=== PATIENT | female | born 1950 | race Caucasian/White ===

== ENCOUNTER 2018-07-15 14:12 | Inpatient (IN) ==
[2018-07-15] MEDS ORDERED: ONDANSETRON 4 MG/2 ML VIAL IV STA (15:38)
[2018-07-15] MEDS ORDERED: HYDROmorphone 2 MG/1 ML VIAL IV ONE (15:38)
[2018-07-15 15:47] LABS: Apearance,Urine CLEAR (Clear); Bilirubin,Urine Negative (Negative); Blood, Urine Negative (Negative); Glucose,Urine (UA) Negative (Negative); Ketones,Urine Negative (Negative); Nitrite,Urine Negative (Negative); Protein,Urine Negative; RBC,Urine <1 /HPF (0-4); Urine Color Yellow (Yellow); Urine Specific Gravity 1.009 (1.001-1.035); Urine Urobilinogen < 2.0 EU/DL (0.2-1.0); WBC,Urine <1 /HPF (0-6)
[2018-07-15 16:20] LABS: Basophils # 0.1 10*3/uL (0.0-0.2); Basophils % 0.6 % (0.0-0.8); Eosinophils # 0.1 10*3/uL (0.0-0.87); Eosinophils % 0.9 % (0.00-10.9); Hemoglobin 14.3 GM/DL (12.0-16.0); Immature Granulocytes % 0.4 %; Immature Granulocytes Absolute 0.03 #; Lymphocytes # 1.3 10*3/uL (1.4-4.0); Lymphocytes % 16.6 % (21.3-54.2); Mean Corpuscular HGB Conc 31.8 GM/DL (32-36); Mean Corpuscular Hemoglobin 30 PG (27-34); Mean Corpuscular Volume 94.1 FL (87-102); Mean Platelet Volume 9.9 FL (9.6-12.0); Monocytes # 0.7 10*3/uL (0.11-0.8); Monocytes % 8.9 % (1.7-12.7); Neutrophils # 5.8 10*3/uL (1.4-7.4); Neutrophils % 72.6 % (38.7-73.9); Platelet Count 212 T/CUMM (130-400); Red Blood Count 4.78 MC/CUMM (3.8-5.5); Red Cell Distribution Width 13.3 % (9.3-17.3); White Blood Count 8.1 T/CUMM (4-12)
[2018-07-15 16:26] LABS: INR 0.9
[2018-07-15 16:53] LABS: Alanine Aminotransferase 18 U/L (13-56); Albumin 4.3 G/DL (3.4-5.0); Alkaline Phosphatase 151 U/L (45-117); Aspartate Amino Transferase 19 U/L (0-37); Bilirubin,Total < 0.39 MG/DL (0.2-1.0); Blood Urea Nitrogen 12 MG/DL (7-18); Calcium 9.3 MG/DL (8.5-10.1); Glucose 105 MG/DL (74-106); Osmolality,Calculated 272.8 MOS/KG (273-304); Potassium 3.9 MMOL/L (3.5-5.1); Sodium 137 MMOL/L (136-145); Total Protein 8.7 G/DL (6.4-8.3)
[2018-07-15 16:54] LABS: Barbiturates Screen,Urine Positive (Negative); Benzodiazepines Screen,Urine Negative (Negative); Cannabinoid Screen,Urine Negative (Negative); Opiate Screen,Urine Negative (Negative); Phencyclidine Screen,Urine Negative (Negative)
[2018-07-15] MEDS: ONDANSETRON 4 MG/2 ML VIAL IV PRN ×2 (17:44→23:33)
[2018-07-15] MEDS ORDERED: LORazepam 2 MG/1 ML VIAL IV PRN (18:08)
[2018-07-15] MEDS: MORPHINE 4 MG/1 ML VIAL IV PRN ×2 (18:40→23:33)
[2018-07-15] MEDS: PHENYTOIN 50 MG PO SCH (20:42)
[2018-07-15] MEDS: TRAZODONE HCL 100 MG PO SCH (20:43)
[2018-07-15] MEDS: clonazePAM 0.5 MG TABLET PO SCH (20:45)
[2018-07-15] MEDS: ATORVASTATIN 10 MG TABLET PO SCH (20:45)
[2018-07-15] MEDS: PHENobarbital 30 MG TABLET PO SCH (20:45)
[2018-07-15] MEDS: QUEtiapine 100 MG TABLET PO SCH (20:45)
[2018-07-15] MEDS ORDERED: ENOXAPARIN 40 MG/0.4 ML SYRINGE SUBCUT SCH (21:00)
[2018-07-16] MEDS: MORPHINE 4 MG/1 ML VIAL IV PRN (03:20)
[2018-07-16] MEDS: ONDANSETRON 4 MG/2 ML VIAL IV PRN ×3 (03:20→14:59)
[2018-07-16 06:10] LABS: Basophils # 0.1 10*3/uL (0.0-0.2); Basophils % 0.7 % (0.0-0.8); Eosinophils % 0.4 % (0.00-10.9); Hematocrit 42.3 VOL% (35.7-47.0); Hemoglobin 13.4 GM/DL (12.0-16.0); Immature Granulocytes % 0.3 %; Immature Granulocytes Absolute 0.02 #; Lymphocytes # 1.4 10*3/uL (1.4-4.0); Lymphocytes % 20.7 % (21.3-54.2); Mean Corpuscular HGB Conc 31.7 GM/DL (32-36); Mean Corpuscular Hemoglobin 30 PG (27-34); Mean Corpuscular Volume 94.4 FL (87-102); Mean Platelet Volume 10.2 FL (9.6-12.0); Monocytes # 1.2 10*3/uL (0.11-0.8); Monocytes % 17.4 % (1.7-12.7); Neutrophils # 4.2 10*3/uL (1.4-7.4); Neutrophils % 60.5 % (38.7-73.9); Platelet Count 221 T/CUMM (130-400); Red Blood Count 4.48 MC/CUMM (3.8-5.5); Red Cell Distribution Width 13.2 % (9.3-17.3); White Blood Count 6.9 T/CUMM (4-12)
[2018-07-16] MEDS ORDERED: ceFAZolin 2,000 MG in PREMIX 1 EACH IV ONE (06:30)
[2018-07-16 06:31] LABS: Osmolality,Calculated 273.7 MOS/KG (273-304); Potassium 3.9 MMOL/L (3.5-5.1); Thyroid Stimulating Hormone 4.84 uIU/ml (0.358-3.74)
[2018-07-16] MEDS ORDERED: METOCLOPRAMIDE 10 MG/2 ML VIAL ONE (07:01)
[2018-07-16] MEDS ORDERED: FAMOTIDINE 20 MG/2 ML VIAL IV ONE (07:01)
[2018-07-16 07:06] LABS: Band Neutrophils 6 % (0-10); Eosinophils 3 % (0-10); Lymphocytes 26 % (20-55); Platelet Estimate Normal; Segmented Neutrophils 49 % (50-85); Total Cells Counted 100
[2018-07-16 07:07] LABS: Anisocytosis Slight
[2018-07-16] MEDS ORDERED: MAGNESIUM HYDROXIDE SUSP 30 ML UDCUP PO PRN (07:21)
[2018-07-16] MEDS ORDERED: BISACODYL 10 MG SUPP RECTAL PRN (07:21)
[2018-07-16] MEDS ORDERED: LACTULOSE 20 GM/30 ML UDCUP PO PRN (07:21)
[2018-07-16] MEDS ORDERED: diphenhydrAMINE CAP 25 MG CAPSULE PO PRN (07:21)
[2018-07-16] MEDS ORDERED: PROMETHAZINE 25 MG/1 ML VIAL ONE (08:46)
[2018-07-16] MEDS ORDERED: ALBUTEROL/IPRATROPIUM 3 ML NEB RESP TX ONE ×2 (08:54→09:12)
[2018-07-16] MEDS ORDERED: MORPHINE 4 MG/1 ML VIAL IV PRN (09:05)
[2018-07-16] MEDS ORDERED: PROMETHAZINE INJ 6.25 MG in SODIUM CHLORIDE 0.9% 50 ML IV ONE (09:45)
[2018-07-16] MEDS: PANTOPRAZOLE 40 MG TABLET PO SCH (10:19)
[2018-07-16] MEDS: amLODIPine 10 MG TABLET PO SCH (10:20)
[2018-07-16] MEDS: clonazePAM 0.5 MG TABLET PO SCH ×3 (10:20→21:28)
[2018-07-16] MEDS: FUROSEMIDE 20 MG TABLET PO SCH (10:20)
[2018-07-16] MEDS: PHENYTOIN 50 MG PO SCH ×3 (10:21→21:28)
[2018-07-16] MEDS: BACLOFEN 10 MG TABLET PO SCH ×3 (10:21→21:28)
[2018-07-16] MEDS: PHENobarbital 30 MG TABLET PO SCH ×2 (10:42→21:28)
[2018-07-16] MEDS: LACTATED RINGERS 1,000 ML IV SCH ×2 (10:42→21:29)
[2018-07-16] MEDS ORDERED: fentaNYL 100 MCG/2 ML VIAL ONE (11:14)
[2018-07-16] MEDS ORDERED: CALCIUM CHLORIDE 1,000 MG/10 ML VIAL IV ONE (11:14)
[2018-07-16] MEDS ORDERED: PROPOFOL 200 MG/20 ML VIAL IV ONE (11:14)
[2018-07-16] MEDS ORDERED: DESFLURANE 1 UNIT/15 MINUTE INH ONE (11:14)
[2018-07-16] MEDS ORDERED: GLYCOPYRROLATE 0.4 MG/2 ML VIAL ONE (11:15)
[2018-07-16] MEDS ORDERED: DEXAMETHASONE 10 MG/1 ML VIAL ONE (11:15)
[2018-07-16] MEDS ORDERED: ROCURONIUM 100 MG/10 ML VIAL IV ONE (11:15)
[2018-07-16] MEDS ORDERED: SUCCINYLCHOLINE 200 MG/10 ML VIAL ONE (11:15)
[2018-07-16] MEDS ORDERED: LACTATED RINGERS 1,000 ML IV ONE (11:15)
[2018-07-16] MEDS ORDERED: NEOSTIGMINE 10 MG/10 ML VIAL ONE (11:15)
[2018-07-16] MEDS ORDERED: ONDANSETRON 4 MG/2 ML VIAL ONE (11:15)
[2018-07-16] MEDS ORDERED: PHENYLEPHRINE 1 MG/10 ML SYRINGE IV ONE (11:15)
[2018-07-16] MEDS: ceFAZolin 1,000 MG in SYRINGE 1 EACH IV SCH ×2 (14:55→22:50)
[2018-07-16] MEDS ORDERED: ENOXAPARIN 40 MG/0.4 ML SYRINGE SUBCUT SCH (20:00)
[2018-07-16] MEDS: ATORVASTATIN 10 MG TABLET PO SCH (21:27)
[2018-07-16] MEDS: QUEtiapine 100 MG TABLET PO SCH (21:28)
[2018-07-16] MEDS: TRAZODONE HCL 100 MG PO SCH (21:29)
[2018-07-16 22:24] LABS: Basophils % 0.4 % (0.0-0.8); Eosinophils % 0.3 % (0.00-10.9); Hematocrit 28.4 VOL% (35.7-47.0); Immature Granulocytes % 0.4 %; Immature Granulocytes Absolute 0.03 #; Lymphocytes # 1.1 10*3/uL (1.4-4.0); Mean Corpuscular HGB Conc 31.7 GM/DL (32-36); Mean Corpuscular Hemoglobin 30 PG (27-34); Mean Corpuscular Volume 94.7 FL (87-102); Mean Platelet Volume 10.4 FL (9.6-12.0); Monocytes # 1.1 10*3/uL (0.11-0.8); Monocytes % 15.5 % (1.7-12.7); Neutrophils # 4.6 10*3/uL (1.4-7.4); Neutrophils % 67.4 % (38.7-73.9); Platelet Count 161 T/CUMM (130-400); Red Cell Distribution Width 13.1 % (9.3-17.3); White Blood Count 6.9 T/CUMM (4-12)
[2018-07-16] MEDS: ENOXAPARIN 30 MG/0.3 ML SYRINGE SUBCUT SCH (22:47)
[2018-07-17] MEDS: ONDANSETRON 4 MG/2 ML VIAL IV PRN ×4 (04:07→19:23)
[2018-07-17 05:42] LABS: Basophils % 0.6 % (0.0-0.8); Eosinophils # 0.1 10*3/uL (0.0-0.87); Eosinophils % 0.8 % (0.00-10.9); Hematocrit 27.4 VOL% (35.7-47.0); Hemoglobin 8.8 GM/DL (12.0-16.0); Immature Granulocytes % 0.4 %; Immature Granulocytes Absolute 0.03 #; Lymphocytes # 1.6 10*3/uL (1.4-4.0); Lymphocytes % 22.1 % (21.3-54.2); Mean Corpuscular HGB Conc 32.1 GM/DL (32-36); Mean Corpuscular Hemoglobin 30 PG (27-34); Mean Corpuscular Volume 94.5 FL (87-102); Mean Platelet Volume 10.4 FL (9.6-12.0); Monocytes # 1.1 10*3/uL (0.11-0.8); Neutrophils # 4.3 10*3/uL (1.4-7.4); Neutrophils % 60.1 % (38.7-73.9); Platelet Count 158 T/CUMM (130-400); Red Cell Distribution Width 13.2 % (9.3-17.3); White Blood Count 7.1 T/CUMM (4-12)
[2018-07-17] MEDS: ceFAZolin 1,000 MG in SYRINGE 1 EACH IV SCH (06:19)
[2018-07-17 06:22] LABS: Calcium 8.3 MG/DL (8.5-10.1); Osmolality,Calculated 276.5 MOS/KG (273-304); Potassium 3.7 MMOL/L (3.5-5.1)
[2018-07-17 06:59] LABS: Band Neutrophils 4 % (0-10); Lymphocytes 24 % (20-55); Segmented Neutrophils 66 % (50-85)
[2018-07-17 07:00] LABS: Platelet Estimate Adequate; Total Cells Counted 100
[2018-07-17] MEDS ORDERED: LEVOTHYROXINE 100 MCG TABLET PO SCH (07:53)
[2018-07-17] MEDS: clonazePAM 0.5 MG TABLET PO SCH ×3 (09:30→21:16)
[2018-07-17] MEDS: FUROSEMIDE 20 MG TABLET PO SCH (09:31)
[2018-07-17] MEDS: PHENobarbital 30 MG TABLET PO SCH ×2 (09:31→21:17)
[2018-07-17] MEDS: PANTOPRAZOLE 40 MG TABLET PO SCH (09:31)
[2018-07-17] MEDS: BACLOFEN 10 MG TABLET PO SCH ×3 (09:32→21:17)
[2018-07-17] MEDS: amLODIPine 10 MG TABLET PO SCH (09:32)
[2018-07-17] MEDS: PHENYTOIN 50 MG PO SCH ×3 (09:32→21:19)
[2018-07-17] MEDS: MORPHINE 4 MG/1 ML VIAL IV PRN ×3 (10:28→19:24)
[2018-07-17] MEDS: PROMETHAZINE 25 MG/1 ML VIAL IM PRN (16:44)
[2018-07-17] MEDS: LACTATED RINGERS 1,000 ML IV SCH (17:37)
[2018-07-17] MEDS: QUEtiapine 100 MG TABLET PO SCH (21:16)
[2018-07-17] MEDS: ATORVASTATIN 10 MG TABLET PO SCH (21:17)
[2018-07-17] MEDS: ENOXAPARIN 30 MG/0.3 ML SYRINGE SUBCUT SCH (21:19)
[2018-07-17] MEDS: TRAZODONE HCL 100 MG PO SCH (21:19)
[2018-07-18] MEDS: LEVOTHYROXINE 50 MCG TABLET PO SCH (06:26)
[2018-07-18] MEDS: LACTATED RINGERS 1,000 ML IV SCH ×2 (08:02→23:56)
[2018-07-18] MEDS: amLODIPine 10 MG TABLET PO SCH (08:09)
[2018-07-18] MEDS ORDERED: SODIUM CHLORIDE 0.9% 1,000 ML IV PRN (08:32)
[2018-07-18] MEDS: PANTOPRAZOLE 40 MG TABLET PO SCH (08:54)
[2018-07-18] MEDS: BACLOFEN 10 MG TABLET PO SCH ×3 (08:54→20:55)
[2018-07-18] MEDS: clonazePAM 0.5 MG TABLET PO SCH ×3 (08:54→20:55)
[2018-07-18] MEDS: PHENobarbital 30 MG TABLET PO SCH ×2 (08:55→20:59)
[2018-07-18] MEDS: PHENYTOIN 50 MG PO SCH ×3 (08:55→20:55)
[2018-07-18] MEDS: FUROSEMIDE 20 MG TABLET PO SCH (08:55)
[2018-07-18] MEDS: ONDANSETRON 4 MG/2 ML VIAL IV PRN (13:56)
[2018-07-18] MEDS: POLYETHYLENE GLYCOL POWDER 17 GM PACK PO SCH (14:48)
[2018-07-18] MEDS: PROMETHAZINE 25 MG/1 ML VIAL IM PRN (15:15)
[2018-07-18] MEDS: ATORVASTATIN 10 MG TABLET PO SCH (20:54)
[2018-07-18] MEDS: QUEtiapine 100 MG TABLET PO SCH (20:54)
[2018-07-18] MEDS: ZINC OXIDE PASTE 113 GM TUBE TOP SCH (20:55)
[2018-07-18] MEDS: TRAZODONE HCL 100 MG PO SCH (20:55)
[2018-07-18] MEDS: ENOXAPARIN 30 MG/0.3 ML SYRINGE SUBCUT SCH (21:04)
[2018-07-18 21:15] LABS: Hematocrit 31.7 VOL% (35.7-47.0); Hemoglobin 10.3 GM/DL (12.0-16.0)
[2018-07-19] MEDS: ONDANSETRON 4 MG/2 ML VIAL IV PRN (01:49)
[2018-07-19 05:13] LABS: Basophils % 0.8 % (0.0-0.8); Eosinophils # 0.4 10*3/uL (0.0-0.87); Eosinophils % 7.7 % (0.00-10.9); Hematocrit 31.2 VOL% (35.7-47.0); Hemoglobin 9.9 GM/DL (12.0-16.0); Immature Granulocytes % 0.4 %; Immature Granulocytes Absolute 0.02 #; Lymphocytes # 1.4 10*3/uL (1.4-4.0); Lymphocytes % 29.6 % (21.3-54.2); Mean Corpuscular HGB Conc 31.7 GM/DL (32-36); Mean Corpuscular Hemoglobin 30 PG (27-34); Mean Corpuscular Volume 94.8 FL (87-102); Mean Platelet Volume 10.3 FL (9.6-12.0); Monocytes # 0.7 10*3/uL (0.11-0.8); Monocytes % 13.6 % (1.7-12.7); Neutrophils # 2.3 10*3/uL (1.4-7.4); Neutrophils % 47.9 % (38.7-73.9); Platelet Count 155 T/CUMM (130-400); Red Blood Count 3.29 MC/CUMM (3.8-5.5); Red Cell Distribution Width 13.2 % (9.3-17.3); White Blood Count 4.8 T/CUMM (4-12)
[2018-07-19 05:43] LABS: Calcium 7.9 MG/DL (8.5-10.1); Potassium 3.4 MMOL/L (3.5-5.1)
[2018-07-19] MEDS: LEVOTHYROXINE 50 MCG TABLET PO SCH (05:43)
[2018-07-19] MEDS: PHENYTOIN 50 MG PO SCH ×2 (09:47→15:10)
[2018-07-19] MEDS: PANTOPRAZOLE 40 MG TABLET PO SCH (09:47)
[2018-07-19] MEDS: FUROSEMIDE 20 MG TABLET PO SCH (09:47)
[2018-07-19] MEDS: clonazePAM 0.5 MG TABLET PO SCH ×2 (09:47→15:10)
[2018-07-19] MEDS: amLODIPine 10 MG TABLET PO SCH (09:47)
[2018-07-19] MEDS: BACLOFEN 10 MG TABLET PO SCH ×2 (09:47→15:10)
[2018-07-19] MEDS: POLYETHYLENE GLYCOL POWDER 17 GM PACK PO SCH (09:48)
[2018-07-19] MEDS: ZINC OXIDE PASTE 113 GM TUBE TOP SCH (09:48)
[2018-07-19] MEDS: PHENobarbital 30 MG TABLET PO SCH (11:11)
[2018-07-19 11:28] VITALS: BP 104/50
[2018-07-19] MEDS: POTASSIUM CHLORIDE 20 MEQ TABLET PO PRN ×2 (13:37→15:11)
== END 2018-07-19 16:35 | disposition swing bed (61) | DRG 481 ==
LOC: EDUNIT# → N.ED 14:12 → N.EDINP 14:12 → SUATTDRO 16:24 → N.EDINP 17:20 → N.3E 17:25
PROVIDERS: ADMIT Internal Medicine; ATTEND Internal Medicine

== ENCOUNTER 2018-08-31 15:43 | Inpatient (IN) ==
[2018-08-31 16:52] LABS: Basophils % 0.4 % (0.0-0.8); Eosinophils % 0.1 % (0.00-10.9); Hematocrit 48.1 VOL% (35.7-47.0); Hemoglobin 15.3 GM/DL (12.0-16.0); Immature Granulocytes % 0.4 %; Immature Granulocytes Absolute 0.03 #; Lymphocytes # 1.2 10*3/uL (1.4-4.0); Lymphocytes % 13.6 % (21.3-54.2); Mean Corpuscular HGB Conc 31.8 GM/DL (32-36); Mean Corpuscular Hemoglobin 30 PG (27-34); Mean Corpuscular Volume 94.9 FL (87-102); Mean Platelet Volume 9.7 FL (9.6-12.0); Monocytes # 0.9 10*3/uL (0.11-0.8); Monocytes % 10.5 % (1.7-12.7); Neutrophils # 6.4 10*3/uL (1.4-7.4); Platelet Count 239 T/CUMM (130-400); Red Blood Count 5.07 MC/CUMM (3.8-5.5); Red Cell Distribution Width 13.5 % (9.3-17.3); White Blood Count 8.5 T/CUMM (4-12)
[2018-08-31 17:04] LABS: Apearance,Urine CLOUDY (Clear); Bilirubin,Urine Negative (Negative); Blood, Urine Small mg/dL (Negative); Glucose,Urine (UA) Negative (Negative); Ketones,Urine Negative (Negative); Mucus,Urine Occasional /LPF (Occasional); Nitrite,Urine Negative (Negative); Protein,Urine Negative; RBC,Urine 4 /HPF (0-4); Urine Color Yellow (Yellow); Urine Specific Gravity 1.025 (1.001-1.035); Urine Urobilinogen < 2.0 EU/DL (0.2-1.0); WBC,Urine 193 /HPF (0-6)
[2018-08-31] MEDS ORDERED: cefTRIAXone 1,000 MG in SODIUM CHLORIDE 0.9% 100 ML IV STA (17:13)
[2018-08-31 17:27] LABS: Albumin 3.2 G/DL (3.4-5.0); Bilirubin,Total 0.5 MG/DL (0.2-1.0); Osmolality,Calculated 276.7 MOS/KG (273-304); Total Protein 7.7 G/DL (6.4-8.3)
[2018-08-31] MEDS ORDERED: hydrALAZINE 20 MG/1 ML VIAL IV PRN (18:14)
[2018-08-31] MEDS ORDERED: cefTRIAXone 1,000 MG in SYRINGE 1 EACH IV ONE (20:00)
[2018-08-31] MEDS ORDERED: ENOXAPARIN 40 MG/0.4 ML SYRINGE SUBCUT SCH (21:00)
[2018-08-31] MEDS: SODIUM CHLORIDE 0.9% 1,000 ML IV SCH (21:31)
[2018-08-31] MEDS: ONDANSETRON 4 MG/2 ML VIAL IV PRN (21:33)
[2018-08-31] MEDS: clonazePAM 0.5 MG TABLET PO SCH (21:33)
[2018-09-01] MEDS: SODIUM CHLORIDE 0.9% 1,000 ML IV SCH ×3 (05:13→17:32)
[2018-09-01 05:23] LABS: Calcium 8.4 MG/DL (8.5-10.1); Osmolality,Calculated 279.4 MOS/KG (273-304); Potassium 3.7 MMOL/L (3.5-5.1)
[2018-09-01] MEDS: ONDANSETRON 4 MG/2 ML VIAL IV PRN ×2 (05:32→11:50)
[2018-09-01 06:15] LABS: Basophils % 0.4 % (0.0-0.8); Eosinophils % 0.1 % (0.00-10.9); Hematocrit 45.9 VOL% (35.7-47.0); Hemoglobin 14.4 GM/DL (12.0-16.0); Immature Granulocytes % 0.3 %; Immature Granulocytes Absolute 0.02 #; Lymphocytes # 1.1 10*3/uL (1.4-4.0); Lymphocytes % 14.1 % (21.3-54.2); Mean Corpuscular HGB Conc 31.4 GM/DL (32-36); Mean Corpuscular Hemoglobin 30 PG (27-34); Mean Corpuscular Volume 96.2 FL (87-102); Mean Platelet Volume 10.4 FL (9.6-12.0); Monocytes # 0.9 10*3/uL (0.11-0.8); Monocytes % 11.8 % (1.7-12.7); Neutrophils # 5.6 10*3/uL (1.4-7.4); Neutrophils % 73.3 % (38.7-73.9); Platelet Count 233 T/CUMM (130-400); Red Blood Count 4.77 MC/CUMM (3.8-5.5); Red Cell Distribution Width 13.7 % (9.3-17.3); White Blood Count 7.7 T/CUMM (4-12)
[2018-09-01] MEDS ORDERED: PANTOPRAZOLE 40 MG VIAL IV SCH (09:00)
[2018-09-01] MEDS ORDERED: diphenhydrAMINE CAP 25 MG CAPSULE PO PRN (09:10)
[2018-09-01] MEDS: BISACODYL 10 MG SUPP RECTAL ONE ×2 (11:28→15:52)
[2018-09-01] MEDS: clonazePAM 0.5 MG TABLET PO SCH ×3 (11:28→20:29)
[2018-09-01] MEDS: amLODIPine 10 MG TABLET PO SCH (11:28)
[2018-09-01] MEDS: ENOXAPARIN 80 MG/0.8 ML SYRINGE SUBCUT SCH ×2 (11:29→23:13)
[2018-09-01] MEDS: MORPHINE 4 MG/1 ML VIAL IV PRN (11:49)
[2018-09-01] MEDS ORDERED: PHENOL 1.4% THROAT SPRAY 177 ML BOTTLE PO PRN (12:25)
[2018-09-01] MEDS: PHENobarbital 30 MG TABLET PO SCH ×2 (16:18→20:29)
[2018-09-01] MEDS: PHENYTOIN 100 MG/4 ML UDCUP PO SCH ×2 (16:18→20:29)
[2018-09-01] MEDS: PANTOPRAZOLE 40 MG VIAL IV SCH (20:30)
[2018-09-01] MEDS: cefTRIAXone 1,000 MG in SYRINGE 1 EACH IV SCH (20:30)
[2018-09-01] MEDS: ZINC OXIDE PASTE 113 GM TUBE TOP SCH (20:31)
[2018-09-01] MEDS ORDERED: cefTRIAXone 2,000 MG in SYRINGE 1 EACH IV SCH (21:00)
[2018-09-01] MEDS: SODIUM CHLOR 0.9% KCL 20 MEQ 20 MEQ/1,000 ML BAG IV SCH (21:58)
[2018-09-02 04:41] LABS: Basophils % 0.7 % (0.0-0.8); Eosinophils # 0.1 10*3/uL (0.0-0.87); Eosinophils % 1.1 % (0.00-10.9); Hematocrit 41.3 VOL% (35.7-47.0); Hemoglobin 12.7 GM/DL (12.0-16.0); Immature Granulocytes % 0.7 %; Immature Granulocytes Absolute 0.04 #; Lymphocytes # 1.3 10*3/uL (1.4-4.0); Lymphocytes % 23.1 % (21.3-54.2); Mean Corpuscular HGB Conc 30.8 GM/DL (32-36); Mean Corpuscular Hemoglobin 30 PG (27-34); Mean Corpuscular Volume 97.6 FL (87-102); Mean Platelet Volume 10.2 FL (9.6-12.0); Monocytes # 0.7 10*3/uL (0.11-0.8); Monocytes % 12.3 % (1.7-12.7); Neutrophils # 3.4 10*3/uL (1.4-7.4); Neutrophils % 62.1 % (38.7-73.9); Platelet Count 204 T/CUMM (130-400); Red Blood Count 4.23 MC/CUMM (3.8-5.5); Red Cell Distribution Width 13.6 % (9.3-17.3); White Blood Count 5.5 T/CUMM (4-12)
[2018-09-02 04:53] LABS: Calcium 7.9 MG/DL (8.5-10.1); Osmolality,Calculated 283.8 MOS/KG (273-304); Potassium 3.7 MMOL/L (3.5-5.1)
[2018-09-02] MEDS: SODIUM CHLOR 0.9% KCL 20 MEQ 20 MEQ/1,000 ML BAG IV SCH ×3 (05:57→20:45)
[2018-09-02] MEDS: LEVOTHYROXINE 50 MCG TABLET PO SCH (05:58)
[2018-09-02] MEDS: MORPHINE 4 MG/1 ML VIAL IV PRN (09:38)
[2018-09-02] MEDS: PHENYTOIN 100 MG/4 ML UDCUP PO SCH ×3 (09:53→21:35)
[2018-09-02] MEDS: amLODIPine 10 MG TABLET PO SCH (09:54)
[2018-09-02] MEDS: PHENobarbital 30 MG TABLET PO SCH ×3 (09:54→21:35)
[2018-09-02] MEDS: clonazePAM 0.5 MG TABLET PO SCH ×3 (09:55→21:35)
[2018-09-02] MEDS: ZINC OXIDE PASTE 113 GM TUBE TOP SCH ×2 (09:55→21:35)
[2018-09-02] MEDS: ONDANSETRON 4 MG/2 ML VIAL IV PRN ×2 (10:55→17:31)
[2018-09-02] MEDS: PANTOPRAZOLE 40 MG VIAL IV SCH ×2 (10:59→21:36)
[2018-09-02] MEDS: ENOXAPARIN 80 MG/0.8 ML SYRINGE SUBCUT SCH (17:32)
[2018-09-02] MEDS: cefTRIAXone 1,000 MG in SYRINGE 1 EACH IV SCH (21:34)
[2018-09-02] MEDS: MELATONIN 3 MG TABLET PO PRN (23:56)
[2018-09-03] MEDS: ONDANSETRON 4 MG/2 ML VIAL IV PRN ×2 (02:53→21:20)
[2018-09-03] MEDS: ENOXAPARIN 80 MG/0.8 ML SYRINGE SUBCUT SCH (05:24)
[2018-09-03] MEDS: LEVOTHYROXINE 50 MCG TABLET PO SCH (05:31)
[2018-09-03] MEDS: SODIUM CHLOR 0.9% KCL 20 MEQ 20 MEQ/1,000 ML BAG IV SCH (06:01)
[2018-09-03 06:22] LABS: Basophils % 0.7 % (0.0-0.8); Eosinophils # 0.1 10*3/uL (0.0-0.87); Eosinophils % 0.9 % (0.00-10.9); Hematocrit 38.5 VOL% (35.7-47.0); Hemoglobin 12.6 GM/DL (12.0-16.0); Immature Granulocytes % 0.7 %; Immature Granulocytes Absolute 0.04 #; Lymphocytes % 17.4 % (21.3-54.2); Mean Corpuscular HGB Conc 32.7 GM/DL (32-36); Mean Corpuscular Hemoglobin 31 PG (27-34); Mean Corpuscular Volume 94.4 FL (87-102); Mean Platelet Volume 9.9 FL (9.6-12.0); Monocytes # 0.6 10*3/uL (0.11-0.8); Monocytes % 10.8 % (1.7-12.7); Neutrophils # 3.9 10*3/uL (1.4-7.4); Neutrophils % 69.5 % (38.7-73.9); Platelet Count 189 T/CUMM (130-400); Red Blood Count 4.08 MC/CUMM (3.8-5.5); Red Cell Distribution Width 13.2 % (9.3-17.3); White Blood Count 5.6 T/CUMM (4-12)
[2018-09-03 06:35] LABS: Albumin 2.9 G/DL (3.4-5.0); Bilirubin,Total 0.9 MG/DL (0.2-1.0); Calcium 8.5 MG/DL (8.5-10.1); Osmolality,Calculated 269.8 MOS/KG (273-304); Total Protein 6.5 G/DL (6.4-8.3)
[2018-09-03] MEDS: clonazePAM 0.5 MG TABLET PO SCH ×3 (09:00→20:59)
[2018-09-03] MEDS: PANTOPRAZOLE 40 MG VIAL IV SCH ×2 (09:00→20:59)
[2018-09-03] MEDS: amLODIPine 10 MG TABLET PO SCH (09:00)
[2018-09-03] MEDS ORDERED: cefOXitin 1,000 MG in SYRINGE 1 EACH IV ONE (09:39)
[2018-09-03] MEDS ORDERED: BUPIVACAINE 0.5% 50 ML VIAL ONE (09:52)
[2018-09-03] MEDS ORDERED: LIDOCAINE 1%/EPI INJ 20 ML VIAL ONE (09:52)
[2018-09-03] MEDS: PHENobarbital 30 MG TABLET PO SCH ×3 (10:27→20:59)
[2018-09-03] MEDS: PHENYTOIN 100 MG/4 ML UDCUP PO SCH ×3 (10:27→20:58)
[2018-09-03] MEDS ORDERED: PROMETHAZINE INJ 25 MG in SODIUM CHLORIDE 0.9% 50 ML IV PRN (11:46)
[2018-09-03] MEDS ORDERED: HYDROmorphone 2 MG/1 ML VIAL IV PRN (11:46)
[2018-09-03] MEDS ORDERED: ONDANSETRON 4 MG/2 ML VIAL IV PRN (11:46)
[2018-09-03] MEDS ORDERED: MEPERIDINE 25 MG/1 ML VIAL ONE (12:50)
[2018-09-03] MEDS: MEPERIDINE 25 MG/1 ML VIAL IV PRN (12:50)
[2018-09-03] MEDS ORDERED: ONDANSETRON 4 MG/2 ML VIAL ONE ×2 (12:50→16:32)
[2018-09-03] MEDS ORDERED: ALBUMIN 5% 12.5 GM/250 ML VIAL IV ONE ×2 (14:02→16:32)
[2018-09-03 14:14] LABS: Free T4 (Free Thyroxine) 1.07 NG/DL (0.76-1.46)
[2018-09-03] MEDS ORDERED: MICROFIBRILLAR COLLAGEN POWDER 1 GM CAN TOP ONE (15:23)
[2018-09-03] MEDS ORDERED: ePHEDrine 50 MG/ML AMP ONE (16:28)
[2018-09-03] MEDS ORDERED: HYDROmorphone 2 MG/1 ML VIAL ONE (16:29)
[2018-09-03] MEDS ORDERED: PROPOFOL 200 MG/20 ML VIAL IV ONE (16:32)
[2018-09-03] MEDS ORDERED: KETOROLAC 30 MG/1 ML VIAL ONE (16:32)
[2018-09-03] MEDS ORDERED: fentaNYL 100 MCG/2 ML VIAL ONE (16:32)
[2018-09-03] MEDS ORDERED: DEXAMETHASONE 4 MG/1 ML VIAL ONE (16:32)
[2018-09-03] MEDS ORDERED: SEVOFLURANE 1 UNIT/15 MINUTE INH ONE (16:32)
[2018-09-03] MEDS ORDERED: SODIUM CHLORIDE 0.9% 1,000 ML IV ONE (16:33)
[2018-09-03] MEDS ORDERED: ROCURONIUM 100 MG/10 ML VIAL IV ONE (16:33)
[2018-09-03] MEDS ORDERED: GLYCOPYRROLATE 0.4 MG/2 ML VIAL ONE (16:33)
[2018-09-03] MEDS ORDERED: ACETAMINOPHEN 1,000 MG/100 ML VIAL IV ONE (16:33)
[2018-09-03] MEDS ORDERED: NEOSTIGMINE 10 MG/10 ML VIAL ONE (16:33)
[2018-09-03] MEDS ORDERED: SODIUM CHLORIDE 0.9% 100 ML IV ONE (16:33)
[2018-09-03] MEDS ORDERED: SUCCINYLCHOLINE 200 MG/10 ML VIAL ONE (16:33)
[2018-09-03 16:34] LABS: Apearance,Urine CLEAR (Clear); Bacteria,Urine Occasional /HPF (Few); Bilirubin,Urine Negative (Negative); Blood, Urine Small mg/dL (Negative); Glucose,Urine (UA) Negative (Negative); Ketones,Urine 80 mg/dL (Negative); Mucus,Urine Occasional /LPF (Occasional); Nitrite,Urine Negative (Negative); Protein,Urine Negative; RBC,Urine <1 /HPF (0-4); Squamous Epithelial Cell,Urine Occasional /HPF (0-10); Urine Color Yellow (Yellow); Urine Specific Gravity 1.025 (1.001-1.035); Urine Urobilinogen < 2.0 EU/DL (0.2-1.0); WBC,Urine <1 /HPF (0-6)
[2018-09-03] MEDS: HYDROmorphone 2 MG/1 ML VIAL IV PRN ×4 (16:35→16:51)
[2018-09-03] MEDS ORDERED: diphenhydrAMINE 50 MG/1 ML VIAL ONE (16:55)
[2018-09-03] MEDS ORDERED: MORPHINE 10 MG/1 ML VIAL ONE (17:11)
[2018-09-03] MEDS: ZINC OXIDE PASTE 113 GM TUBE TOP SCH ×2 (17:16→22:36)
[2018-09-03] MEDS: metroNIDAZOLE INJ 500 MG in PREMIX 1 EACH IV SCH ×2 (17:16→18:08)
[2018-09-03] MEDS: POTASSIUM CHLORIDE INJ 10 MEQ in DEXTROSE 5% LACTATED RINGERS 1,000 ML IV SCH ×2 (17:16→18:03)
[2018-09-03] MEDS ORDERED: diphenhydrAMINE 50 MG/1 ML VIAL IV PRN (17:18)
[2018-09-03] MEDS ORDERED: MORPHINE 10 MG/1 ML VIAL IV PRN (17:18)
[2018-09-03] MEDS: cefTRIAXone 2,000 MG in SYRINGE 1 EACH IV SCH (18:08)
[2018-09-03 18:13] LABS: Hematocrit 39.1 VOL% (35.7-47.0); Hemoglobin 12.7 GM/DL (12.0-16.0)
[2018-09-03] MEDS: MORPHINE 4 MG/1 ML VIAL IV PRN ×2 (18:58→22:10)
[2018-09-04] MEDS: MEPERIDINE 25 MG/1 ML VIAL IV PRN (00:19)
[2018-09-04] MEDS: ONDANSETRON 4 MG/2 ML VIAL IV PRN ×5 (00:21→20:24)
[2018-09-04 00:49] LABS: Hematocrit 37.5 VOL% (35.7-47.0); Hemoglobin 12.1 GM/DL (12.0-16.0)
[2018-09-04] MEDS: metroNIDAZOLE INJ 500 MG in PREMIX 1 EACH IV SCH ×3 (01:39→16:05)
[2018-09-04] MEDS: POTASSIUM CHLORIDE INJ 10 MEQ in DEXTROSE 5% LACTATED RINGERS 1,000 ML IV SCH ×2 (03:58→14:50)
[2018-09-04 04:07] LABS: Basophils % 0.5 % (0.0-0.8); Eosinophils % 0.2 % (0.00-10.9); Hemoglobin 12.6 GM/DL (12.0-16.0); Immature Granulocytes % 0.5 %; Immature Granulocytes Absolute 0.03 #; Lymphocytes # 1.1 10*3/uL (1.4-4.0); Lymphocytes % 18.4 % (21.3-54.2); Mean Corpuscular HGB Conc 32.3 GM/DL (32-36); Mean Corpuscular Hemoglobin 30 PG (27-34); Mean Corpuscular Volume 94.2 FL (87-102); Mean Platelet Volume 11.6 FL (9.6-12.0); Monocytes # 0.8 10*3/uL (0.11-0.8); Monocytes % 13.1 % (1.7-12.7); Neutrophils # 3.8 10*3/uL (1.4-7.4); Neutrophils % 67.3 % (38.7-73.9); Red Blood Count 4.14 MC/CUMM (3.8-5.5); Red Cell Distribution Width 13.2 % (9.3-17.3); White Blood Count 5.7 T/CUMM (4-12)
[2018-09-04] MEDS: MORPHINE 4 MG/1 ML VIAL IV PRN ×3 (04:07→20:26)
[2018-09-04 04:09] LABS: Platelet Count 119 T/CUMM (130-400)
[2018-09-04 04:37] LABS: Bilirubin,Total 0.7 MG/DL (0.2-1.0); Calcium 8.1 MG/DL (8.5-10.1); Osmolality,Calculated 274.5 MOS/KG (273-304); Potassium 3.8 MMOL/L (3.5-5.1); Total Protein 6.1 G/DL (6.4-8.3)
[2018-09-04 05:18] LABS: Platelet Estimate Decreased
[2018-09-04] MEDS ORDERED: BUPIVACAINE 0.5% 50 ML VIAL ONE (07:10)
[2018-09-04] MEDS: clonazePAM 0.5 MG TABLET PO SCH ×3 (08:21→21:28)
[2018-09-04] MEDS: PHENobarbital 30 MG TABLET PO SCH ×3 (08:21→21:28)
[2018-09-04] MEDS: amLODIPine 10 MG TABLET PO SCH (08:21)
[2018-09-04] MEDS: PANTOPRAZOLE 40 MG VIAL IV SCH ×2 (08:22→21:28)
[2018-09-04] MEDS: PHENYTOIN 100 MG/4 ML UDCUP PO SCH ×3 (08:22→21:28)
[2018-09-04 08:26] LABS: Hemoglobin 12.8 GM/DL (12.0-16.0)
[2018-09-04] MEDS: ZINC OXIDE PASTE 113 GM TUBE TOP SCH ×2 (08:53→21:30)
[2018-09-04] MEDS ORDERED: PROMETHAZINE 25 MG/1 ML VIAL ONE (09:19)
[2018-09-04] MEDS ORDERED: PROMETHAZINE INJ 25 MG in SODIUM CHLORIDE 0.9% 50 ML IV ONE (10:00)
[2018-09-04] MEDS: cefTRIAXone 2,000 MG in SYRINGE 1 EACH IV SCH (11:40)
[2018-09-04] MEDS: MELATONIN 3 MG TABLET PO PRN (21:28)
[2018-09-05] MEDS: POTASSIUM CHLORIDE INJ 10 MEQ in DEXTROSE 5% LACTATED RINGERS 1,000 ML IV SCH ×3 (00:54→23:09)
[2018-09-05] MEDS: metroNIDAZOLE INJ 500 MG in PREMIX 1 EACH IV SCH ×3 (02:00→16:04)
[2018-09-05] MEDS: MORPHINE 4 MG/1 ML VIAL IV PRN ×3 (02:10→15:54)
[2018-09-05 04:26] LABS: Basophils % 0.3 % (0.0-0.8); Eosinophils % 0.7 % (0.00-10.9); Hematocrit 35.2 VOL% (35.7-47.0); Hemoglobin 11.4 GM/DL (12.0-16.0); Immature Granulocytes % 0.5 %; Immature Granulocytes Absolute 0.03 #; Lymphocytes # 0.9 10*3/uL (1.4-4.0); Lymphocytes % 15.4 % (21.3-54.2); Mean Corpuscular HGB Conc 32.4 GM/DL (32-36); Mean Corpuscular Hemoglobin 31 PG (27-34); Mean Corpuscular Volume 95.1 FL (87-102); Monocytes # 0.8 10*3/uL (0.11-0.8); Monocytes % 13.7 % (1.7-12.7); Neutrophils # 4.1 10*3/uL (1.4-7.4); Neutrophils % 69.4 % (38.7-73.9); Platelet Count 186 T/CUMM (130-400); Red Cell Distribution Width 13.6 % (9.3-17.3); White Blood Count 5.9 T/CUMM (4-12)
[2018-09-05 04:36] LABS: Albumin 2.7 G/DL (3.4-5.0); Bilirubin,Total 0.6 MG/DL (0.2-1.0); Calcium 8.2 MG/DL (8.5-10.1); Osmolality,Calculated 281.1 MOS/KG (273-304); Total Protein 5.8 G/DL (6.4-8.3)
[2018-09-05] MEDS ORDERED: MAGNESIUM SULF RIDER 4 GM in PREMIX 1 EACH IV PRN (05:14)
[2018-09-05] MEDS ORDERED: MAGNESIUM SULF RIDER 2 GM in PREMIX 1 EACH IV PRN (05:14)
[2018-09-05] MEDS: POTASSIUM CHLORIDE RIDER 10 MEQ in PREMIX 1 EACH IV PRN ×5 (05:39→11:24)
[2018-09-05] MEDS: PANTOPRAZOLE 40 MG VIAL IV SCH ×2 (10:09→20:51)
[2018-09-05] MEDS: PHENobarbital 30 MG TABLET PO SCH ×3 (10:10→20:51)
[2018-09-05] MEDS: amLODIPine 10 MG TABLET PO SCH (10:10)
[2018-09-05] MEDS: clonazePAM 0.5 MG TABLET PO SCH ×3 (10:10→20:50)
[2018-09-05] MEDS: PHENYTOIN 100 MG/4 ML UDCUP PO SCH ×3 (10:12→20:53)
[2018-09-05] MEDS: ZINC OXIDE PASTE 113 GM TUBE TOP SCH ×2 (10:13→20:53)
[2018-09-05] MEDS: cefTRIAXone 2,000 MG in SYRINGE 1 EACH IV SCH (11:52)
[2018-09-05] MEDS: ONDANSETRON 4 MG/2 ML VIAL IV PRN (16:15)
[2018-09-05] MEDS: MELATONIN 3 MG TABLET PO PRN (20:50)
[2018-09-06] MEDS: metroNIDAZOLE INJ 500 MG in PREMIX 1 EACH IV SCH ×3 (00:46→16:49)
[2018-09-06] MEDS: PHENYTOIN 100 MG/4 ML UDCUP PO SCH ×3 (08:58→20:38)
[2018-09-06] MEDS: PHENobarbital 30 MG TABLET PO SCH ×3 (08:59→20:39)
[2018-09-06] MEDS: clonazePAM 0.5 MG TABLET PO SCH ×3 (08:59→20:38)
[2018-09-06] MEDS: amLODIPine 10 MG TABLET PO SCH (08:59)
[2018-09-06] MEDS: ZINC OXIDE PASTE 113 GM TUBE TOP SCH ×2 (09:06→20:39)
[2018-09-06] MEDS: PANTOPRAZOLE 40 MG VIAL IV SCH ×2 (09:07→20:41)
[2018-09-06] MEDS: ONDANSETRON 4 MG/2 ML VIAL IV PRN ×3 (09:10→19:34)
[2018-09-06] MEDS: POTASSIUM CHLORIDE INJ 10 MEQ in DEXTROSE 5% LACTATED RINGERS 1,000 ML IV SCH ×2 (11:27→21:41)
[2018-09-06 11:36] LABS: Basophils % 0.6 % (0.0-0.8); Eosinophils % 0.6 % (0.00-10.9); Hematocrit 37.4 VOL% (35.7-47.0); Immature Granulocytes % 0.8 %; Immature Granulocytes Absolute 0.04 #; Lymphocytes # 0.7 10*3/uL (1.4-4.0); Lymphocytes % 13.4 % (21.3-54.2); Mean Corpuscular HGB Conc 32.1 GM/DL (32-36); Mean Corpuscular Hemoglobin 31 PG (27-34); Mean Corpuscular Volume 96.1 FL (87-102); Mean Platelet Volume 9.8 FL (9.6-12.0); Monocytes # 0.7 10*3/uL (0.11-0.8); Monocytes % 13.4 % (1.7-12.7); Neutrophils # 3.5 10*3/uL (1.4-7.4); Neutrophils % 71.2 % (38.7-73.9); Platelet Count 196 T/CUMM (130-400); Red Blood Count 3.89 MC/CUMM (3.8-5.5); Red Cell Distribution Width 13.8 % (9.3-17.3); White Blood Count 4.9 T/CUMM (4-12)
[2018-09-06] MEDS: cefTRIAXone 2,000 MG in SYRINGE 1 EACH IV SCH (13:18)
[2018-09-06] MEDS: QUEtiapine 100 MG TABLET PO SCH (20:39)
[2018-09-07] MEDS: metroNIDAZOLE INJ 500 MG in PREMIX 1 EACH IV SCH ×3 (00:48→17:13)
[2018-09-07 04:45] LABS: Basophils % 0.5 % (0.0-0.8); Eosinophils # 0.2 10*3/uL (0.0-0.87); Eosinophils % 6.3 % (0.00-10.9); Hematocrit 36.9 VOL% (35.7-47.0); Hemoglobin 11.5 GM/DL (12.0-16.0); Immature Granulocytes % 0.3 %; Immature Granulocytes Absolute 0.01 #; Lymphocytes % 28.1 % (21.3-54.2); Mean Corpuscular HGB Conc 31.2 GM/DL (32-36); Mean Corpuscular Hemoglobin 31 PG (27-34); Mean Corpuscular Volume 97.9 FL (87-102); Mean Platelet Volume 9.9 FL (9.6-12.0); Monocytes # 0.7 10*3/uL (0.11-0.8); Monocytes % 18.3 % (1.7-12.7); Neutrophils # 1.7 10*3/uL (1.4-7.4); Neutrophils % 46.5 % (38.7-73.9); Platelet Count 187 T/CUMM (130-400); Red Blood Count 3.77 MC/CUMM (3.8-5.5); Red Cell Distribution Width 14.1 % (9.3-17.3); White Blood Count 3.7 T/CUMM (4-12)
[2018-09-07 05:07] LABS: Calcium 8.5 MG/DL (8.5-10.1); Potassium 3.4 MMOL/L (3.5-5.1)
[2018-09-07] MEDS: ONDANSETRON 4 MG/2 ML VIAL IV PRN (05:26)
[2018-09-07 05:50] LABS: Band Neutrophils 2 % (0-10); Eosinophils 7 % (0-10); Lymphocytes 32 % (20-55); Reactive Lymphocytes 1+; Segmented Neutrophils 44 % (50-85); Total Cells Counted 100
[2018-09-07 05:51] LABS: Hypochromasia 1+; Platelet Estimate Normal
[2018-09-07] MEDS: POTASSIUM CHLORIDE RIDER 10 MEQ in PREMIX 1 EACH IV PRN ×3 (06:40→09:12)
[2018-09-07] MEDS ORDERED: PROMETHAZINE INJ 25 MG in SODIUM CHLORIDE 0.9% 50 ML IV ONE (08:30)
[2018-09-07] MEDS: POTASSIUM CHLORIDE INJ 10 MEQ in DEXTROSE 5% LACTATED RINGERS 1,000 ML IV SCH ×3 (09:12→22:50)
[2018-09-07] MEDS: PANTOPRAZOLE 40 MG VIAL IV SCH ×2 (10:46→21:47)
[2018-09-07] MEDS: cefTRIAXone 2,000 MG in SYRINGE 1 EACH IV SCH (14:20)
[2018-09-07] MEDS: PHENYTOIN 100 MG/4 ML UDCUP PO SCH ×3 (14:24→21:46)
[2018-09-07] MEDS: PHENobarbital 30 MG TABLET PO SCH ×3 (14:25→21:47)
[2018-09-07] MEDS: clonazePAM 0.5 MG TABLET PO SCH ×3 (14:25→21:47)
[2018-09-07] MEDS: amLODIPine 10 MG TABLET PO SCH (17:12)
[2018-09-07] MEDS: ENOXAPARIN 80 MG/0.8 ML SYRINGE SUBCUT SCH (17:13)
[2018-09-07] MEDS: ZINC OXIDE PASTE 113 GM TUBE TOP SCH ×2 (17:35→21:47)
[2018-09-07] MEDS: QUEtiapine 100 MG TABLET PO SCH (21:46)
[2018-09-07] MEDS: POTASSIUM PHOS/SOD PHOS 250 MG TABLET PO SCH (21:47)
[2018-09-08] MEDS: metroNIDAZOLE INJ 500 MG in PREMIX 1 EACH IV SCH ×2 (01:01→10:21)
[2018-09-08 04:58] LABS: Basophils % 0.8 % (0.0-0.8); Eosinophils # 0.3 10*3/uL (0.0-0.87); Eosinophils % 8.8 % (0.00-10.9); Hematocrit 34.9 VOL% (35.7-47.0); Hemoglobin 10.7 GM/DL (12.0-16.0); Immature Granulocytes % 0.5 %; Immature Granulocytes Absolute 0.02 #; Lymphocytes # 1.1 10*3/uL (1.4-4.0); Lymphocytes % 28.1 % (21.3-54.2); Mean Corpuscular HGB Conc 30.7 GM/DL (32-36); Mean Corpuscular Hemoglobin 30 PG (27-34); Mean Corpuscular Volume 97.5 FL (87-102); Mean Platelet Volume 9.8 FL (9.6-12.0); Monocytes # 0.6 10*3/uL (0.11-0.8); Monocytes % 15.9 % (1.7-12.7); Neutrophils # 1.7 10*3/uL (1.4-7.4); Neutrophils % 45.9 % (38.7-73.9); Platelet Count 192 T/CUMM (130-400); Red Blood Count 3.58 MC/CUMM (3.8-5.5); White Blood Count 3.8 T/CUMM (4-12)
[2018-09-08] MEDS: ENOXAPARIN 80 MG/0.8 ML SYRINGE SUBCUT SCH ×2 (05:09→16:31)
[2018-09-08 05:10] LABS: Calcium 7.9 MG/DL (8.5-10.1); Osmolality,Calculated 285.7 MOS/KG (273-304); Potassium 3.5 MMOL/L (3.5-5.1)
[2018-09-08 05:36] LABS: Eosinophils 6 % (0-10); Lymphocytes 21 % (20-55); Platelet Estimate Normal; Segmented Neutrophils 59 % (50-85); Total Cells Counted 100
[2018-09-08] MEDS ORDERED: DEXTROSE 10% 1,000 ML IV PRN (10:05)
[2018-09-08] MEDS ORDERED: GLUCAGON 1 MG VIAL IM PRN (10:05)
[2018-09-08] MEDS ORDERED: DEXTROSE 50% 25 GM/50 ML SYRINGE IV PRN (10:05)
[2018-09-08] MEDS: POTASSIUM PHOS/SOD PHOS 250 MG TABLET PO SCH ×4 (10:31→21:48)
[2018-09-08] MEDS: ZINC OXIDE PASTE 113 GM TUBE TOP SCH ×2 (10:31→21:48)
[2018-09-08] MEDS: amLODIPine 10 MG TABLET PO SCH (10:32)
[2018-09-08] MEDS: PANTOPRAZOLE 40 MG VIAL IV SCH ×3 (10:37→23:53)
[2018-09-08] MEDS: PHENobarbital 30 MG TABLET PO SCH ×3 (10:47→21:49)
[2018-09-08] MEDS: PHENYTOIN 100 MG/4 ML UDCUP PO SCH ×3 (10:47→21:48)
[2018-09-08] MEDS: POTASSIUM CHLORIDE INJ 10 MEQ in DEXTROSE 5% LACTATED RINGERS 1,000 ML IV SCH (13:09)
[2018-09-08] MEDS: FAT EMULSION 20% 250 ML IV SCH (14:29)
[2018-09-08] MEDS: AMINO ACIDS/DEXT/LYTES 4.25-5% 2,000 ML IV SCH (16:19)
[2018-09-08] MEDS: QUEtiapine 100 MG TABLET PO SCH (21:49)
[2018-09-09] MEDS: ENOXAPARIN 80 MG/0.8 ML SYRINGE SUBCUT SCH ×2 (05:13→18:13)
[2018-09-09 05:25] LABS: Basophils % 0.7 % (0.0-0.8); Eosinophils # 0.4 10*3/uL (0.0-0.87); Eosinophils % 9.2 % (0.00-10.9); Hematocrit 37.2 VOL% (35.7-47.0); Hemoglobin 11.7 GM/DL (12.0-16.0); Immature Granulocytes % 0.2 %; Immature Granulocytes Absolute 0.01 #; Lymphocytes # 0.9 10*3/uL (1.4-4.0); Lymphocytes % 21.3 % (21.3-54.2); Mean Corpuscular HGB Conc 31.5 GM/DL (32-36); Mean Corpuscular Hemoglobin 30 PG (27-34); Mean Corpuscular Volume 96.6 FL (87-102); Mean Platelet Volume 9.8 FL (9.6-12.0); Monocytes # 0.6 10*3/uL (0.11-0.8); Monocytes % 13.3 % (1.7-12.7); Neutrophils # 2.4 10*3/uL (1.4-7.4); Neutrophils % 55.3 % (38.7-73.9); Platelet Count 212 T/CUMM (130-400); Red Blood Count 3.85 MC/CUMM (3.8-5.5); Red Cell Distribution Width 13.8 % (9.3-17.3); White Blood Count 4.4 T/CUMM (4-12)
[2018-09-09 05:27] LABS: Calcium 8.3 MG/DL (8.5-10.1); Osmolality,Calculated 278.3 MOS/KG (273-304); Potassium 3.5 MMOL/L (3.5-5.1)
[2018-09-09 05:36] LABS: Prealbumin 14.4 MG/DL (20-40)
[2018-09-09] MEDS: PANTOPRAZOLE 40 MG VIAL IV SCH ×2 (08:33→21:18)
[2018-09-09] MEDS: PHENYTOIN 100 MG/4 ML UDCUP PO SCH ×3 (08:33→21:15)
[2018-09-09] MEDS: POTASSIUM PHOS/SOD PHOS 250 MG TABLET PO SCH ×4 (08:33→21:16)
[2018-09-09] MEDS: ZINC OXIDE PASTE 113 GM TUBE TOP SCH ×2 (08:34→21:26)
[2018-09-09] MEDS: PHENobarbital 30 MG TABLET PO SCH ×3 (08:34→22:35)
[2018-09-09] MEDS: amLODIPine 10 MG TABLET PO SCH (08:34)
[2018-09-09] MEDS: FAT EMULSION 20% 250 ML IV SCH (15:00)
[2018-09-09] MEDS: AMINO ACIDS/DEXT/LYTES 4.25-5% 2,000 ML IV SCH (18:13)
[2018-09-09] MEDS: QUEtiapine 100 MG TABLET PO SCH (21:16)
[2018-09-10 04:34] LABS: Basophils % 0.4 % (0.0-0.8); Eosinophils # 0.4 10*3/uL (0.0-0.87); Eosinophils % 8.2 % (0.00-10.9); Hematocrit 36.4 VOL% (35.7-47.0); Hemoglobin 11.8 GM/DL (12.0-16.0); Immature Granulocytes % 0.9 %; Immature Granulocytes Absolute 0.04 #; Lymphocytes # 1.3 10*3/uL (1.4-4.0); Lymphocytes % 27.1 % (21.3-54.2); Mean Corpuscular HGB Conc 32.4 GM/DL (32-36); Mean Corpuscular Hemoglobin 31 PG (27-34); Mean Corpuscular Volume 94.3 FL (87-102); Monocytes # 0.6 10*3/uL (0.11-0.8); Monocytes % 12.6 % (1.7-12.7); Neutrophils # 2.3 10*3/uL (1.4-7.4); Neutrophils % 50.8 % (38.7-73.9); Platelet Count 203 T/CUMM (130-400); Red Blood Count 3.86 MC/CUMM (3.8-5.5); Red Cell Distribution Width 13.6 % (9.3-17.3); White Blood Count 4.6 T/CUMM (4-12)
[2018-09-10] MEDS: ENOXAPARIN 80 MG/0.8 ML SYRINGE SUBCUT SCH ×2 (05:26→16:30)
[2018-09-10 05:30] LABS: Calcium 8.2 MG/DL (8.5-10.1); Osmolality,Calculated 277.5 MOS/KG (273-304); Potassium 3.7 MMOL/L (3.5-5.1)
[2018-09-10] MEDS: POTASSIUM PHOS/SOD PHOS 250 MG TABLET PO SCH ×4 (09:00→21:22)
[2018-09-10] MEDS: PANTOPRAZOLE 40 MG VIAL IV SCH ×2 (09:05→21:23)
[2018-09-10] MEDS: PHENYTOIN 100 MG/4 ML UDCUP PO SCH ×3 (09:06→21:21)
[2018-09-10] MEDS: PHENobarbital 30 MG TABLET PO SCH ×3 (09:07→21:22)
[2018-09-10] MEDS: ZINC OXIDE PASTE 113 GM TUBE TOP SCH ×2 (09:07→21:30)
[2018-09-10] MEDS: amLODIPine 10 MG TABLET PO SCH (09:07)
[2018-09-10] MEDS ORDERED: traMADol 50 MG TABLET PO PRN (11:13)
[2018-09-10] MEDS: FAT EMULSION 20% 250 ML IV SCH (14:39)
[2018-09-10] MEDS: AMINO ACIDS/DEXT/LYTES 4.25-5% 2,000 ML IV SCH (19:51)
[2018-09-10] MEDS: QUEtiapine 100 MG TABLET PO SCH (21:22)
[2018-09-11 04:53] LABS: Basophils % 0.7 % (0.0-0.8); Eosinophils # 0.2 10*3/uL (0.0-0.87); Eosinophils % 5.4 % (0.00-10.9); Hematocrit 37.8 VOL% (35.7-47.0); Hemoglobin 11.7 GM/DL (12.0-16.0); Immature Granulocytes % 0.5 %; Immature Granulocytes Absolute 0.02 #; Lymphocytes # 1.1 10*3/uL (1.4-4.0); Lymphocytes % 26.5 % (21.3-54.2); Mean Corpuscular Hemoglobin 30 PG (27-34); Mean Corpuscular Volume 96.4 FL (87-102); Mean Platelet Volume 9.8 FL (9.6-12.0); Monocytes # 0.6 10*3/uL (0.11-0.8); Monocytes % 13.6 % (1.7-12.7); Neutrophils # 2.3 10*3/uL (1.4-7.4); Neutrophils % 53.3 % (38.7-73.9); Platelet Count 194 T/CUMM (130-400); Red Blood Count 3.92 MC/CUMM (3.8-5.5); Red Cell Distribution Width 13.5 % (9.3-17.3); White Blood Count 4.3 T/CUMM (4-12)
[2018-09-11] MEDS: ENOXAPARIN 80 MG/0.8 ML SYRINGE SUBCUT SCH ×2 (05:21→18:03)
[2018-09-11 05:28] LABS: Calcium 8.5 MG/DL (8.5-10.1); Osmolality,Calculated 280.4 MOS/KG (273-304)
[2018-09-11 05:30] LABS: Band Neutrophils 2 % (0-10); Eosinophils 9 % (0-10); Lymphocytes 28 % (20-55); Myelocytes 1 %; Platelet Estimate Normal; Promyelocytes 1 %; Segmented Neutrophils 49 % (50-85); Total Cells Counted 100
[2018-09-11] MEDS: PHENYTOIN 100 MG/4 ML UDCUP PO SCH ×3 (08:46→21:37)
[2018-09-11] MEDS: CHOLECALCIFEROL 1,000 UNIT TABLET PO SCH (08:46)
[2018-09-11] MEDS: POTASSIUM PHOS/SOD PHOS 250 MG TABLET PO SCH ×4 (08:46→21:38)
[2018-09-11] MEDS: amLODIPine 10 MG TABLET PO SCH (08:47)
[2018-09-11] MEDS: ZINC OXIDE PASTE 113 GM TUBE TOP SCH ×2 (08:47→21:38)
[2018-09-11] MEDS: PANTOPRAZOLE 40 MG VIAL IV SCH ×2 (08:47→21:39)
[2018-09-11] MEDS: PHENobarbital 30 MG TABLET PO SCH ×3 (08:48→21:38)
[2018-09-11] MEDS: FAT EMULSION 20% 250 ML IV SCH (15:41)
[2018-09-11] MEDS: ONDANSETRON 4 MG/2 ML VIAL IV PRN (19:06)
[2018-09-11] MEDS: AMINO ACIDS/DEXT/LYTES 4.25-5% 2,000 ML IV SCH (21:18)
[2018-09-11] MEDS: QUEtiapine 100 MG TABLET PO SCH (21:38)
[2018-09-12 05:27] LABS: Basophils # 0.1 10*3/uL (0.0-0.2); Basophils % 1.1 % (0.0-0.8); Eosinophils # 0.2 10*3/uL (0.0-0.87); Eosinophils % 4.5 % (0.00-10.9); Hemoglobin 12.1 GM/DL (12.0-16.0); Immature Granulocytes % 0.7 %; Immature Granulocytes Absolute 0.03 #; Lymphocytes # 1.4 10*3/uL (1.4-4.0); Lymphocytes % 30.7 % (21.3-54.2); Mean Corpuscular HGB Conc 31.8 GM/DL (32-36); Mean Corpuscular Hemoglobin 30 PG (27-34); Mean Corpuscular Volume 94.8 FL (87-102); Mean Platelet Volume 10.2 FL (9.6-12.0); Monocytes # 0.6 10*3/uL (0.11-0.8); Monocytes % 13.7 % (1.7-12.7); Neutrophils # 2.2 10*3/uL (1.4-7.4); Neutrophils % 49.3 % (38.7-73.9); Platelet Count 209 T/CUMM (130-400); Red Blood Count 4.01 MC/CUMM (3.8-5.5); Red Cell Distribution Width 13.2 % (9.3-17.3); White Blood Count 4.5 T/CUMM (4-12)
[2018-09-12] MEDS: ENOXAPARIN 80 MG/0.8 ML SYRINGE SUBCUT SCH ×2 (05:31→19:13)
[2018-09-12 05:56] LABS: Calcium 8.6 MG/DL (8.5-10.1); Osmolality,Calculated 277.7 MOS/KG (273-304); Potassium 4.3 MMOL/L (3.5-5.1)
[2018-09-12 07:11] LABS: Hypochromasia 1+; Platelet Estimate Adequate
[2018-09-12] MEDS ORDERED: ERGOCALCIFEROL 50,000 UNIT CAPSULE PO ONE (10:30)
[2018-09-12] MEDS: ZINC OXIDE PASTE 113 GM TUBE TOP SCH ×2 (10:35→21:44)
[2018-09-12] MEDS: ONDANSETRON 4 MG/2 ML VIAL IV PRN ×3 (10:44→19:57)
[2018-09-12] MEDS: PANTOPRAZOLE 40 MG VIAL IV SCH ×2 (10:48→21:44)
[2018-09-12] MEDS: PHENobarbital 30 MG TABLET PO SCH ×3 (10:55→21:41)
[2018-09-12] MEDS: amLODIPine 10 MG TABLET PO SCH (10:55)
[2018-09-12] MEDS: PHENYTOIN 100 MG/4 ML UDCUP PO SCH ×3 (10:56→21:44)
[2018-09-12] MEDS: POTASSIUM PHOS/SOD PHOS 250 MG TABLET PO SCH ×4 (11:03→21:40)
[2018-09-12] MEDS: DULoxetine 20 MG CAPSULE PO SCH ×2 (11:03→21:41)
[2018-09-12] MEDS: CHOLECALCIFEROL 1,000 UNIT TABLET PO SCH (11:03)
[2018-09-12] MEDS: FAT EMULSION 20% 250 ML IV SCH (15:41)
[2018-09-12] MEDS: AMINO ACIDS/DEXT/LYTES 4.25-5% 2,000 ML IV SCH (19:14)
[2018-09-12] MEDS: QUEtiapine 100 MG TABLET PO SCH (21:40)
[2018-09-13] MEDS: ENOXAPARIN 80 MG/0.8 ML SYRINGE SUBCUT SCH ×2 (04:37→18:24)
[2018-09-13] MEDS: PHENobarbital 30 MG TABLET PO SCH ×3 (09:25→22:04)
[2018-09-13] MEDS: amLODIPine 10 MG TABLET PO SCH (09:25)
[2018-09-13] MEDS: PHENYTOIN 100 MG/4 ML UDCUP PO SCH ×3 (09:25→21:04)
[2018-09-13] MEDS: DULoxetine 20 MG CAPSULE PO SCH ×2 (09:25→21:08)
[2018-09-13] MEDS: POTASSIUM PHOS/SOD PHOS 250 MG TABLET PO SCH ×4 (09:25→21:06)
[2018-09-13] MEDS: CHOLECALCIFEROL 1,000 UNIT TABLET PO SCH (09:26)
[2018-09-13] MEDS: PANTOPRAZOLE 40 MG VIAL IV SCH ×2 (09:26→21:06)
[2018-09-13] MEDS: ZINC OXIDE PASTE 113 GM TUBE TOP SCH ×2 (10:50→21:08)
[2018-09-13] MEDS: FAT EMULSION 20% 250 ML IV SCH (14:48)
[2018-09-13] MEDS: PROCHLORPERAZINE 5 MG TABLET PO SCH ×2 (14:54→21:06)
[2018-09-13] MEDS ORDERED: ERGOCALCIFEROL 50,000 UNIT CAPSULE PO ONE (17:00)
[2018-09-13] MEDS: AMINO ACIDS/DEXT/LYTES 4.25-5% 2,000 ML IV SCH (19:26)
[2018-09-13] MEDS: QUEtiapine 100 MG TABLET PO SCH (22:04)
[2018-09-14] MEDS: ENOXAPARIN 80 MG/0.8 ML SYRINGE SUBCUT SCH (06:35)
[2018-09-14] MEDS: POTASSIUM PHOS/SOD PHOS 250 MG TABLET PO SCH ×4 (09:00→20:13)
[2018-09-14] MEDS: PROCHLORPERAZINE 5 MG TABLET PO SCH ×2 (09:21→20:12)
[2018-09-14] MEDS: PHENobarbital 30 MG TABLET PO SCH ×3 (09:21→20:18)
[2018-09-14] MEDS: amLODIPine 10 MG TABLET PO SCH (09:21)
[2018-09-14] MEDS: PANTOPRAZOLE 40 MG VIAL IV SCH ×2 (09:21→20:13)
[2018-09-14] MEDS: DULoxetine 20 MG CAPSULE PO SCH ×2 (09:21→20:11)
[2018-09-14] MEDS: ZINC OXIDE PASTE 113 GM TUBE TOP SCH ×2 (09:21→20:18)
[2018-09-14] MEDS: CHOLECALCIFEROL 1,000 UNIT TABLET PO SCH (09:22)
[2018-09-14] MEDS: PHENYTOIN 100 MG/4 ML UDCUP PO SCH ×3 (09:38→20:12)
[2018-09-14] MEDS: FAT EMULSION 20% 250 ML IV SCH (15:00)
[2018-09-14] MEDS: CHOLESTYRAMINE 4 GM PACK PO SCH (16:26)
[2018-09-14] MEDS: QUEtiapine 100 MG TABLET PO SCH (20:11)
[2018-09-14] MEDS: APIXABAN 5 MG TABLET PO SCH (20:18)
[2018-09-14] MEDS: AMINO ACIDS/DEXT/LYTES 4.25-5% 2,000 ML IV SCH (20:27)
[2018-09-15 05:14] LABS: Calcium 8.7 MG/DL (8.5-10.1); Osmolality,Calculated 280.4 MOS/KG (273-304); Prealbumin 24.7 MG/DL (20-40)
[2018-09-15] MEDS: AMINO ACIDS/DEXT/LYTES 4.25-5% 2,000 ML IV SCH (06:21)
[2018-09-15] MEDS: POTASSIUM PHOS/SOD PHOS 250 MG TABLET PO SCH ×4 (08:52→22:36)
[2018-09-15] MEDS: PHENYTOIN 100 MG/4 ML UDCUP PO SCH ×3 (08:52→22:35)
[2018-09-15] MEDS: PANTOPRAZOLE 40 MG VIAL IV SCH ×2 (08:52→22:37)
[2018-09-15] MEDS: amLODIPine 10 MG TABLET PO SCH (08:53)
[2018-09-15] MEDS: APIXABAN 5 MG TABLET PO SCH ×2 (08:53→22:35)
[2018-09-15] MEDS: CHOLECALCIFEROL 1,000 UNIT TABLET PO SCH (08:53)
[2018-09-15] MEDS: PROCHLORPERAZINE 5 MG TABLET PO SCH ×2 (08:53→22:35)
[2018-09-15] MEDS: CHOLESTYRAMINE 4 GM PACK PO SCH (08:53)
[2018-09-15] MEDS: PHENobarbital 30 MG TABLET PO SCH ×3 (08:54→22:40)
[2018-09-15] MEDS: ZINC OXIDE PASTE 113 GM TUBE TOP SCH ×2 (08:54→22:35)
[2018-09-15] MEDS: DULoxetine 20 MG CAPSULE PO SCH (09:23)
[2018-09-15] MEDS: FAT EMULSION 20% 250 ML IV SCH (14:58)
[2018-09-15] MEDS: QUEtiapine 100 MG TABLET PO SCH (22:37)
[2018-09-16] MEDS ORDERED: DULoxetine 30 MG CAPSULE PO SCH (09:00)
[2018-09-16] MEDS: POTASSIUM PHOS/SOD PHOS 250 MG TABLET PO SCH ×3 (09:00→16:24)
[2018-09-16] MEDS: PANTOPRAZOLE 40 MG VIAL IV SCH (09:12)
[2018-09-16] MEDS: CHOLESTYRAMINE 4 GM PACK PO SCH (09:12)
[2018-09-16] MEDS: CHOLECALCIFEROL 1,000 UNIT TABLET PO SCH (09:13)
[2018-09-16] MEDS: PHENYTOIN 100 MG/4 ML UDCUP PO SCH ×2 (09:13→16:00)
[2018-09-16] MEDS: amLODIPine 10 MG TABLET PO SCH (09:13)
[2018-09-16] MEDS: APIXABAN 5 MG TABLET PO SCH (09:14)
[2018-09-16] MEDS: ZINC OXIDE PASTE 113 GM TUBE TOP SCH (09:14)
[2018-09-16] MEDS: PHENobarbital 30 MG TABLET PO SCH ×2 (09:14→17:05)
[2018-09-16] MEDS: PROCHLORPERAZINE 5 MG TABLET PO SCH (09:15)
[2018-09-16] MEDS: FAT EMULSION 20% 250 ML IV SCH (15:00)
[2018-09-16 16:32] VITALS: BP 126/66
== END 2018-09-16 18:36 | DRG 330 ==
LOC: EDUNIT# → EDBD → N.ED 15:43 → N.EDINP 18:10 → SUATTDRO 18:10 → N.5E 19:19 → N.ICU 09-03 17:39 → N.3E 09-05 12:12
PROVIDERS: ADMIT Internal Medicine; ATTEND Hospitalist